=== PATIENT | male | born 1990 ===

== ENCOUNTER 2020-06-09 13:58 | Emergency (ER) | payer SELFPAY ==
[~2020-06-09] VITALS: Ht 167.6 cm; Wt 68.2 kg
[2020-06-09] MEDS ORDERED: ACETAMINOPHEN 500 MG TABLET PO ONE (14:15)
[2020-06-09 15:43] VITALS: BP 130/88
== END 2020-06-09 15:44 | disposition home or self-care (01) ==
LOC: EMS 14:04
DX: S09.90XA Unspecified injury of head, initial encounter (principal); F15.90 Other stimulant use, unspecified, uncomplicated; X58.XXXA Exposure to other specified factors, initial encounter; Y93.89 Activity, other specified; Y92.89 Other specified places as the place of occurrence of the external cause; Y99.8 Other external cause status
CPT/HCPCS: 70450; 99284